=== PATIENT | male | born 1960 | race Two or more races ===

== ENCOUNTER 2018-11-05 23:09 | Emergency (ER) | payer SELFPAY ==
[~2018-11-05] VITALS: Ht 182.9 cm; Wt 86.2 kg
--- NOTE | 2018-11-05 23:30 | NUR ---
ED Nurse Note: RECIEVED PT IN OB ROOM, TP IS LYING IN BED, DOES NOT VERBALLY RESPOND, WITHDRAWS TO PAINFUL STIMULI, VERY STRONG ALCOHOL ODOR NOTED ON BREATH, ALSO DRIED EMESIS ON FACE AND SHIRT, PT IN ROOM, NO MONITORING AVAILBLE IN THIS ROOM, WILL CONTINUE TO MONITOR.
[2018-11-06 00:30] VITALS: BP 149/71
--- NOTE | 2018-11-06 01:26 | NUR ---
ED Nurse Note: pt in bed sleepin, room changed to tx1, pt continues to wait to be seen by md. will cojntinue to closely monitor.
[2018-11-06 02:00] VITALS: BP 141/84
--- NOTE | 2018-11-06 02:20 | NUR ---
ED Nurse Note: pt continues to rest in bed, awakening more, pt is calm and cooperative, pt used urinal, denies pain, no sob or labored breathing, pt oriented to place and time, pt states he is not homeless and gives address near [facility] and [facility], pt states he lives [place] the [place], pt has no one to come and get him, will continue to monitor and d/c when safe.
--- NOTE | 2018-11-06 03:58 | Emergency Room Report ---
History of Present Illness General Chief Complaint: Alcohol Intoxication Source: EMS Present Illness HPI This is a 58-year-old male brought by EMS with chief complaint of alcohol intoxication. Patient went missing from family for 2 hours and came home intoxicated and vomiting. They called 911. There is no trauma. Unable to get any history from patient because of his intoxication. Similar symptom in the past per EMS. Allergies: Coded Allergies: UNABLE TO ASSESS (Unverified , 11/05/18) Patient History Past Medical History: see triage record, old chart reviewed, psych hx Past Surgical History: unable to obtain Pertinent Family History: unable to obtain Social History: Reports: alcohol use Immunizations: other Reviewed Nursing Documentation: PMH: Agreed; PSxH: Agreed Nursing Documentation-PMH Past Medical History: No History, Except For History Of Psychiatric Problem: Yes - schizo Review of Systems All Other Systems: limited - Due to intoxication Physical Exam Vital Signs Date Time Temp Pulse Resp B/P (MAP) Pulse Ox O2 Delivery O2 Flow Rate FiO2 11/05/18 23:00 68 18 158/76 100 Room Air vitals with high blood pressure Sp02 EP Interpretation: reviewed, normal General Appearance: well appearing, no apparent distress, other - Very intoxicated Head: normocephalic, atraumatic Eyes: bilateral eye PERRL, bilateral eye EOMI ENT: hearing grossly normal, normal pharynx Neck: full range of motion, supple, no meningismus Respiratory: chest non-tender, lungs clear, normal breath sounds Cardiovascular #1: regular rate, rhythm, no murmur Gastrointestinal: normal bowel sounds, non tender, no mass, no organomegaly, no bruit, non-distended Musculoskeletal: back normal, normal range of motion Neurologic: grossly normal Psychiatric: mood/affect normal Skin: warm/dry Medical Decision Making Diagnostic Impression: Primary Impression: Acute alcoholic intoxication Qualified Codes: F10.920 - Alcohol use, unspecified with intoxication, uncomplicated ER Course Patient with alcohol intoxication. No evidence of injury to warrant CT scan or x-ray. We'll discharge home when clinically sober. Last Vital Signs Date Time Temp Pulse Resp B/P (MAP) Pulse Ox O2 Delivery O2 Flow Rate FiO2 11/05/18 23:35 68 18 Room Air 11/05/18 23:00 158/76 100 Status: improved Disposition: HOME, SELF-CARE Condition: Stable Referrals: NOT CHOSEN IPA/MD,REFERRING (PCP) Patient Instructions: Alcohol Intoxication, [id number] Additional Instructions: Abstain from alcohol. Follow-up with your doctor in 7 days. Return if worse. Redd Luther MD Nov 06, 2018 03:58
--- NOTE | 2018-11-06 04:13 | NUR ---
Ambulated to restroom with no distress, directed to his room, patient compliant, no distress noted at this time.Will be discharged home in AM per .
[2018-11-06 04:15] VITALS: BP 139/83
--- NOTE | 2018-11-06 04:35 | NUR ---
ED Nurse Note: pt being d/c to home, pt is awake, alert and oriented x 4, ambulatory with steady gait, pt denies cp or any pain, no sob or labored breathing, given juice and tolerated well, md states ok to discharge, pt given f/u info, after caer instructions and resources for AA and community assistance, pt is very thankful and polite, pt discharged with nad noted, armband and iv line removed without complications.
[2018-11-06 04:58] VITALS: BP 139/83
== END 2018-11-06 04:59 | disposition home or self-care (01) ==
LOC: EDBD 23:09 → EMR 23:30
DX: F10.129 Alcohol abuse with intoxication, unspecified (principal); F20.9 Schizophrenia, unspecified
CPT/HCPCS: 99282